=== PATIENT | male | born 1945 | race Caucasian/White ===

== ENCOUNTER → 2021-08-29 07:44 | Outpatient (CLI) | payer MEDICARE, BC, SELFPAY ==
--- NOTE | 2021-08-29 | CA_ITS ---
FINAL REPORT TECHNIQUE: Grayscale, color Doppler and duplex Doppler ultrasound of the kidneys, aorta and renal arteries was performed. Multiple velocities were measured. CLINICAL HISTORY: .CKD III, HTN, Pt was not NPO FINDINGS: Aorta velocity: 131.1 cm/sec Right kidney: 10.8 cm. No evidence of hydronephrosis or mass. Right intrarenal RI: 0.75 Right renal artery velocity: 189 cm/sec. Right RAR (Renal artery-Aortic Ratio): 1.4 Left Kidney: 12.2 cm. No evidence of hydronephrosis or mass. Left intrarenal RI: 0.75 Left renal artery velocity: 157 cm/sec. Left RAR (Renal Artery-Aortic Ratio): 1.2 IMPRESSION: No evidence of significant renal artery stenosis. CT angiogram or postcontrast MR angiogram would be more sensitive for evaluation of possible renal artery stenosis. Reviewed, Interpreted and Dictated by Ibrahima Zapata III, MD Transcribed by Divina Belcher Authenticated by Ibrahima Zapata III, MD on 08/29/2021 11:21:41 AM [facility]
== END ==
PROVIDERS: PCP Family Medicine; Visit Provider Family Medicine
DX: I10 Essential (primary) hypertension (principal)
CPT/HCPCS: 93976

== ENCOUNTER → 2021-10-10 08:28 | Outpatient (CLI) | payer MEDICARE, BC, SELFPAY | PROVIDERS: Visit Provider Surgery | DX: Z01.812 Encounter for preprocedural laboratory examination (principal); Z11.52 Encounter for screening for COVID-19; Z12.11 Encounter for screening for malignant neoplasm of colon | CPT/HCPCS: C9803; U0003; U0005 ==

== ENCOUNTER 2021-10-12 07:28 | Day surgery (SDC) | payer MEDICARE, BC, SELFPAY ==
[2021-10-11 14:22] VITALS: BMI 34.7
[2021-10-12] VITALS (7 sets, daily range): BP systolic 102–166; BP diastolic 57–79; PULSE 54–102; RESP 16; TEMP 36.3–36.6; O2SAT 92–97
--- NOTE | 2021-10-12 07:49 | P.PN_ITS ---
[facility] Anesthesia Checklist - Structural Data Admitted From: Home Planned Operative Procedure/s: Colonoscopy Verified Documents: Surgical Consent - NPO Status Verified Time NPO: 04:00 - Airway Assessment C-Spine Mobility Assessed: Yes TMJ Mobility Assessed: Yes - Neurological Assessment Level of Consciousness: Awake, Alert, Appropriate - Anesthesia Plan Anesthesia Risk discussed: Yes ASA Class: II Anesthesia Type: MAC [facility] History I have reviewed the patient's past medical history: Yes Medical History: Reports:: Diabetes Mellitus Type 2, MRSA Denies:: Cancer, Diabetes Mellitus Type 1, Internal Pacemaker *Have you ever received a pneumonia vaccine?: Yes *Have you received a flu vaccine this season?: Yes Anesthesia experience/problems:: none Other Surgeries: No: Pacemaker Amputation: No Fractures: No - *Social History Last grade of school completed: High school graduate Smoking Status: Former smoker Alcohol Intake: current Alcohol Intake Frequency:: a few times a month Substance Use Type: denies use *Occupational Status:: retired Housing: house Household Members: spouse *Travel in the last 8 weeks: None Family Hx:: Other
--- NOTE | 2021-10-12 09:01 | HMH.SCOPE ---
- Procedure: Date: 10/12/21 Patient Date of :: 1945 Procedure Performed:: Colonoscopy with polypectomy by snare and biopsy Indications:: Patient is a 76-year-old male from [place] with history of diabetes, hypertension, previous stroke. He underwent colonoscopy in [address] Umaña and was found to have 8 tubular adenomas. He had follow-up colonoscopy 03/07/2017 and had several polyps removed. Performing Provider:: Ibrahima Saldaña MD Referring Provider:: Yolis Rosa Sedation:: MAC sedation Procedure:: Patient was taken to endoscopy procedure room. He was positioned in lateral decubitus position. Adequate intravenous sedation was achieved with anesthesia titration propofol. Variable stiffness Olympus colonoscope was inserted via the anus. Advanced to the cecum with some minor difficulty due to floppiness and redundancy of the sigmoid colon. Ileocecal valve was clearly identified. There was a small adenomatous appearing polyp in the cecum removed with cold biopsy. Colonoscope was slowly withdrawn through the colon. There was particulate liquid stool throughout the colon which was suctioned free. The descending colon there was a several millimeter adenomatous appearing polyp removed with cold snare. He had left-sided diverticulosis. There was a single diverticulum which appeared to have some inflammatory changes with punctate erosion. This was biopsied. The rectosigmoid region there were multiple hyperplastic appearing polyps which were sampled using cold biopsy. Retroflexion within the rectum revealed nonbleeding internal hemorrhoids. Colonoscope was withdrawn. Findings:: Particulate liquid stool within the colon Small cecal polyp Several millimeter descending colon polyp Left-sided diverticulosis with single diverticulum showing some inflammation Hyperplastic appearing rectosigmoid polyps Recommendations:: Follow-up colonoscopy pending the pathology. Likely 3 to 5 years Complications:: None immediately apparent Estimated blood obtained (mL): 2
[2021-10-12 09:12] LABS: POC Glucose,Bedside 91 (70-110)
== END 2021-10-12 09:45 | disposition home or self-care (01) ==
LOC: OUTP 07:30
PROVIDERS: PCP Nurse Practitioner Family; Visit Provider Surgery
PROC: 0DJD8ZZ Inspection of Lower Intestinal Tract, Via Natural or Artificial Opening Endoscopic (ICD-10-PCS; principal; 2021-10-12 08:30)
DX: Z12.11 Encounter for screening for malignant neoplasm of colon (principal); Z86.010 Personal history of colon polyps; K63.5 Polyp of colon; K57.30 Diverticulosis of large intestine without perforation or abscess without bleeding; E11.9 Type 2 diabetes mellitus without complications; Z86.14 Personal history of Methicillin resistant Staphylococcus aureus infection; Z87.891 Personal history of nicotine dependence; E78.5 Hyperlipidemia, unspecified; I10 Essential (primary) hypertension; Z79.82 Long term (current) use of aspirin; Z79.84 Long term (current) use of oral hypoglycemic drugs; Z79.899 Other long term (current) drug therapy
CPT/HCPCS: 45380; 45385; 82962; 88305

== ENCOUNTER → 2022-11-28 13:48 | Outpatient (CLI) | payer MEDICARE, BC, SELFPAY ==
--- NOTE | 2022-11-28 13:54 | XR_ITS ---
FINAL REPORT CLINICAL HISTORY: RT KNEE PAIN COMPARISON: None FINDINGS: Three views of the right knee reveal no evidence of fracture or dislocation. The bony alignment is normal. There is mild degenerative change. There is no evidence of joint effusion. Mild vascular calcifications are noted. IMPRESSION: No acute abnormality identified. Reviewed, Interpreted and Dictated by Ibrahima Zapata III, MD Transcribed by Parul Berry Authenticated and . [facility]
== END ==
PROVIDERS: PCP Nurse Practitioner Family; Visit Provider Nurse Practitioner Family
DX: M25.561 Pain in right knee (principal)
CPT/HCPCS: 73562

== ENCOUNTER → 2023-06-05 08:21 | Outpatient (CLI) | payer MEDICARE, BC, SELFPAY ==
[2023-06-05 17:34] LABS: Basophils # 0.1 K/mm3 (0-0.2); Eosinophils # 0.4 K/mm3 (0.0-0.4); Hematocrit 42.8 % (42.0-52.0); Hemoglobin 14.2 g/dL (14.1-18.0); Lymphocytes # 1.8 K/mm3 (0.7-4.5); Lymphocytes % 27.2 % (10-50); Mean Corpuscular HGB Conc 33.2 g/dL (31.8-35.4); Mean Corpuscular Hemoglobin 31.4 pg (27.0-31.2); Mean Corpuscular Volume 94.4 fl (80-94); Mean Platelet Volume 10.2 fl (7.4-10.4); Monocytes # 0.5 K/mm3 (0.1-1.0); Neutrophils # 3.8 K/mm3 (1.8-7.8); Neutrophils % 57.8 % (37.0-80.0); Platelet Count 282 K/mm3 (142-424); Red Blood Count 4.53 M/mm3 (4.60-6.20); Red Cell Distribution Width 13.8 % (11.5-17.5); White Blood Count 6.5 K/mm3 (4.8-10.8)
[2023-06-05 17:50] LABS: Alanine Aminotransferase 41 U/L (12-78); Albumin Level 4.5 g/dl (3.5-5.0); Albumin/Globulin Ratio 1.3 (1.1-1.8); Alkaline Phosphatase 43 U/L (38-126); Aspartate Amino Transferase 47 U/L (17-59); Bilirubin,Total 0.4 mg/dl (0.2-1.3); Blood Urea Nitrogen 39 mg/dl (9-20); Carbon Dioxide 24 mmol/L (22.0-30.0); Chloride 102 mmol/L (98-107); Cholesterol 185 mg/dl (140-200); Estimated Glomerular Filt Rate 35 ml/min (>60); GFR (African American) 42 ML/MIN (>60); Globulin 3.5 g/dL (1.3-3.2); Glucose 120 mg/dl (74-100); Triglycerides 295 mg/dl (30-150); VLDL Cholesterol 59 mg/dL (0-40)
[2023-06-05 17:51] LABS: Anion Gap 12.6 mEq/L (5-15); HDL Cholesterol 37 mg/dl (40-60); Potassium 5.6 mmoL/L (3.5-5.1); Sodium 133 mmol/L (136-145)
[2023-06-05 18:01] LABS: Direct LDL Cholesterol 96.44 mg/dL (100-129)
[2023-06-05 18:09] LABS: Hemoglobin A1C 7.5 % (4.0-6.0)
[2023-06-05 18:20] LABS: Thyroid Stimulating Hormone 2.67 uIU/mL (0.465-4.68)
== END ==
PROVIDERS: PCP Family Medicine; Visit Provider Family Medicine
DX: Z00.00 Encounter for general adult medical examination without abnormal findings (principal); E11.9 Type 2 diabetes mellitus without complications; I10 Essential (primary) hypertension; R53.83 Other fatigue; Z79.4 Long term (current) use of insulin; Z79.84 Long term (current) use of oral hypoglycemic drugs; Z87.891 Personal history of nicotine dependence
CPT/HCPCS: 80053; 80061; 83036; 84443; 85025

== ENCOUNTER 2023-10-09 09:03 | Outpatient (CLI) | payer MEDICARE, BC, SELFPAY | END 2023-10-09 23:59 | disposition home or self-care (01) | LOC: LAB.DROPOF 10-08 11:18 | PROVIDERS: PCP Family Medicine; Visit Provider Family Medicine | DX: I10 Essential (primary) hypertension (principal); E11.9 Type 2 diabetes mellitus without complications | CPT/HCPCS: 80053; 80061; 83036; 84443; 85025 ==

== ENCOUNTER 2024-03-15 11:43 | Outpatient (CLI) | payer MEDICARE, BC, SELFPAY ==
[2024-03-15 12:22] LABS: Basophils # 0.1 K/mm3 (0-0.2); Basophils % 0.7 % (0.1-2.0); Eosinophils # 0.3 K/mm3 (0.0-0.4); Eosinophils % 4.3 % (0.1-12.0); Hematocrit 45.7 % (42.0-52.0); Hemoglobin 14.5 g/dL (14.1-18.0); Lymphocytes # 1.8 K/mm3 (0.7-4.5); Lymphocytes % 26.7 % (10-50); Mean Corpuscular HGB Conc 31.7 g/dL (31.8-35.4); Mean Corpuscular Hemoglobin 30.9 pg (27.0-31.2); Mean Corpuscular Volume 97.6 fl (80-94); Mean Platelet Volume 8.1 fl (7.4-10.4); Monocytes # 0.5 K/mm3 (0.1-1.0); Monocytes % 6.7 % (1.7-9.3); Neutrophils # 4.3 K/mm3 (1.8-7.8); Neutrophils % 61.7 % (37.0-80.0); Platelet Count 289 K/mm3 (142-424); Red Blood Count 4.69 M/mm3 (4.60-6.20); Red Cell Distribution Width 14.9 % (11.5-17.5); White Blood Count 6.9 K/mm3 (4.8-10.8)
[2024-03-15 12:51] LABS: Alanine Aminotransferase 36 U/L (12-78); Albumin Level 4.5 g/dl (3.5-5.0); Alkaline Phosphatase 39 U/L (38-126); Anion Gap 9.4 mEq/L (5-15); Aspartate Amino Transferase 42 U/L (17-59); Bilirubin,Direct 0.2 mg/dl (0.0-0.4); Bilirubin,Indirect 0.3 mg/dL (0.0-0.9); Bilirubin,Total 0.5 mg/dl (0.2-1.3); Bilirubin,Unconjugated 0.3 mg/dL (0.0-1.1); Blood Urea Nitrogen 29 mg/dl (9-20); Calcium 10.5 mg/dl (8.4-10.2); Carbon Dioxide 27 mmol/L (22.0-30.0); Chloride 104 mmol/L (98-107); Chol/HDL Ratio 3.1 (1-3.5); Cholesterol 188 mg/dl (140-200); Estimated Glomerular Filt Rate 53 ml/min (>60); GFR (African American) 65 ML/MIN (>60); Glucose 80 mg/dl (74-100); HDL Cholesterol 60 mg/dl (40-60); Potassium 4.4 mmoL/L (3.5-5.1); Sodium 136 mmol/L (136-145); Total Protein,Serum 8.1 g/dl (6.3-8.2); Triglycerides 138 mg/dl (30-150); VLDL Cholesterol 28 mg/dL (0-40)
[2024-03-15 13:07] LABS: Free T4 (Free Thyroxine) 1.09 ng/dl (0.78-2.19)
[2024-03-15 13:21] LABS: Thyroid Stimulating Hormone 2.42 uIU/mL (0.465-4.68)
== END 2024-03-15 23:59 | disposition home or self-care (01) ==
LOC: LAB 11:44
PROVIDERS: PCP Family Medicine; Visit Provider Nurse Practitioner
DX: R07.89 Other chest pain (principal); R06.00 Dyspnea, unspecified; I10 Essential (primary) hypertension; R94.31 Abnormal electrocardiogram [ECG] [EKG]; E11.40 Type 2 diabetes mellitus with diabetic neuropathy, unspecified; Z79.4 Long term (current) use of insulin; Z87.891 Personal history of nicotine dependence; R60.9 Edema, unspecified
CPT/HCPCS: 36415; 80048; 80061; 80076; 84439; 84443; 85025

== ENCOUNTER 2024-03-25 07:12 | Outpatient (CLI) | payer MEDICARE, BC, SELFPAY ==
--- NOTE | 2024-03-25 | CA_ITS ---
APPROVED REPORT Exam: Pharmacologic Technologist: Shae Jones, Ht: 6 ft 0 in Wt: 259 lbs BSA: 2.38 m2 HR: 60 bpm BP: 154/64 mmHg Rhythm: NSR, PACs, PVCs, incomplete RBBB, inferior and lateral T wave abns Medical History Medical History: HTN, Hyperlipidemia, Diabetes, Smoking Medications: Lisinopril,,,,, Levothyroxine,,,,, Aspirin,,,,, Metoprolol Tartrate,,,,, Vit D3,,,,, CloPIdogrel,,,,, RoSUVASTATIN,,,,, Multivitamin,,,,, Furosemide,,,,, INSULIN GLARGINE,,,,, Clonidine HCI,,,,, NifEDIPINE ER,,,,, Allergies: No known drug allergies Cardiac Risk Factors: HTN, Hyperlipidemia, Diabetes, FHX of CAD, Smoking Stress Test Details Test: LEXISCAN HR Resting HR: 62 bpm Max Heart Rate (APMHR): 142 bpm Max HR Achieved: 75 bpm Target HR (85% APMHR): 121 bpm % of APMHR: 53 Recovery HR: 60 bpm BP Resting BP: 154/64 mmHg Max BP: 167/71 mmHg Recovery BP: 160.0/63.0 mmHg ECG Resting ECG: NSR, PACs, PVCs, incomplete RBBB, inferior and lateral T wave abns Stress ECG: No significant ST changes Arrhythmia: PACs, PVCs, junctional beats. Clinical Exercise duration: 04:00 min Highest Stage Achieved: Stress ECG Conclusion Pt had no symptoms. PACs, PVCs, junctional beats after Lexiscan administration Conclusion: No significant ST changes Unremarkable lexiscan stress Test Summary REST 04:11 . . 62 . 154/ 64 . . Stage 1 01:00 . . 66 . . . . Stage 2 01:00 . . 69 . . . . Stage 3 01:00 . . 72 . 167/ 71 . . Stage 4 01:00 . . 66 . 161/ 71 . Stop exercise at 04:00 RECOVERY 01:00 . . 63 . 162/ 63 . . RECOVERY 02:00 . . 67 . 162/ 63 . . RECOVERY 02:30 . . 64 . 160/ 63 . . Electronically signed by : Alla Buckley MD 03/29/2024 22:41:12
--- NOTE | 2024-03-25 07:15 | CA_ITS ---
APPROVED REPORT EXAM: Comprehensive 2D, Doppler, and color-flow Echocardiogram Contracting Engineer: Brittni Madrid CRT Ht: 6 ft 0 in Wt: 258lbs BSA: 2.37 BP: 142/68 mmHg Indications: Chest Pain, Shortness of Breath, Diabetes, Hyperlipidemia, Hypertension/HDD, stent, exsmoker 2D Dimensions LA Volume 73.10 mL LA Volume Index 30.10 mL/m2 (M/F) 16-34 M-Mode Dimensions RVDd 3.51 cm (0.9-2.6) LA Diam 5.25 cm (1.9-4.0) LVDd 5.08 cm (3.5-5.7) LVDs 2.86 cm (3.5-5.7) IVSd 1.61 cm (0.6-1.1) PWd 0.93 cm (0.6-1.1) EF (Teich) 74.70% FS 43.70% EDV (Teich) 122.70 mL TAPSE 2.60 (<1.7) ESV (Teich) 31.10 mL LV Diastology E Decel Time 223 (160-240 msec) E/A Ratio 0.84 MED A' 10.80 cm/s LAT A' 9.30 cm/s Aortic Valve AO Peak GR. 9.30 mmHg Mitral Valve MV A Velocity 78.0 (40-130 cm/s) E/A Ratio 0.84 Pulmonary Valve PV Peak Velocity 146.0 (50-150 cm/s) Tricuspid Valve TR P. Velocity 272.00 cm/s RAP Estimate 10.00 mmHg RVSP 39.50 mmHg Left Ventricle The left ventricle is normal size. The left ventricular systolic function is normal. The left ventricular ejection fraction is within the normal range. There is marked increase of wall thickness. IVSD 1.3 cm. There is normal LV segmental wall motion. Diastolic function is indeterminate. Transmitral Doppler flow pattern suggests impaired LV relaxation. LVEF is 65%. Right Ventricle The right ventricle is mildly dilated. The right ventricular systolic function is normal. Atria Left atrium is mildly dilated. Right atrium is mildly dilated. There is no Doppler evidence of interatrial shunt. Aortic Valve The aortic valve is mildly thickened. Trace aortic regurgitation. There is no aortic valvular stenosis. Mitral Valve The mitral valve is mildly thickened. No evidence of mitral valve stenosis. Trace mitral regurgitation. Tricuspid Valve The tricuspid valve leaflets are thin and pliable. Mild tricuspid regurgitation. RVSP is 20-25 mmHg. Pulmonic Valve The pulmonary valve is normal in structure. Mild pulmonic regurgitation. Great Vessels The aortic root is normal in size. The ascending aorta is not well-visualized. IVC is normal in size and collapses >50% with inspiration. The Pericardium There is no pericardial effusion. Other Information Study Quality: Fair Conclusion Normal LV systolic function. Marked increased LV wall thickness. IVSD 1.3 cm. Mildly dilated RV with mild reduction in RV function. Biatrial dilation. Mild TR, mild PI. In the setting of persistent symptoms, increased LV wall thickness, and biatrial dilation, further evaluation for infiltrative cardiomyopathy (namely amyloidosis) is suggested with cardiac MRI (amyloidosis protocol), PYP nuclear scan, and amyloidosis lab testing. Electronically signed by : Alla Buckley MD 03/29/2024 23:36:47
--- NOTE | 2024-03-25 07:17 | NM_ITS ---
APPROVED REPORT Exam: Nuclear Stress Test Indication: soa..fatigue Patient Location: Outpatient Stress Tech: Shae Jones [place] Tech:Dominga OrozcoLEIDY RT(R)(N) Ht: 6 ft 0 in Wt: 255 lbs HR: 62 bpm BP: 154/64 mmHg BSA: 2.36 m2 TID: 1.06 History: soa..fatigue Procedure: Patient received 0.4 mg of intravenous Lexiscan, resting heart rate 62 bpm, resting blood pressure 154/64 mmHg, with Lexiscan maximum heart rate achieved was 75 bpm which is 85 % of the maximum predicted heart rate and blood pressure was 167/71 mmHg. With Lexiscan, patient denied any complaint of chest pain. Cardiac Stress and Resting SPECT Images: Cardiac Stress and Resting SPECT images were obtained using technetium 99m Myoview 32.2 mCi stress and 10.71 mCi at rest. Resting and stress imaging in supine and prone positions demonstrate no evidence of fixed or reversible perfusion defects. Gated imaging demonstrates normal global and regional LV systolic function. LVEF is calculated at 62%. Conclusion: No evidence of fixed or reversible perfusion defects. Gated imaging demonstrates normal global and regional LV systolic function. LVEF is calculated at 62%. Electronically signed by : Alla Buckley MD 03/29/2024 22:42:07
[2024-03-25] MEDS: ISOTOPE MYOVIEW (PER STUDY) 1 DOSE IV (11:15)
[2024-03-25] MEDS: SODIUM CHLORIDE 0.9% 10ML SYR (RAD ONLY) 10 ML IV ×2 (11:15)
[2024-03-25] MEDS: REGADENOSON 0.4MG/5ML SYRINGE 0.4 MG IV (11:15)
== END 2024-03-25 23:59 | disposition home or self-care (01) ==
LOC: RAD 07:13
PROVIDERS: PCP Family Medicine; Visit Provider Nurse Practitioner
DX: R07.89 Other chest pain (principal); R06.00 Dyspnea, unspecified; I10 Essential (primary) hypertension
CPT/HCPCS: 78452; 93017; 93018; 93306; A9502; J2785

== ENCOUNTER 2024-05-07 07:22 | Outpatient (CLI) | payer MEDICARE, BC, SELFPAY ==
--- NOTE | 2024-05-07 07:50 | NM_ITS ---
APPROVED REPORT [employer]: Procedure: 99mTc-PYP Cardiac Amyloidosis Imaging Clinical Indication: Heart failure, increased LV wall thickness Protocol: The patient received 25.2 mCi 99mTc-PYP intravenously. Planar and SPECT imaging was performed approximately 3 hours post injection. Planar images included anterior, left lateral and NATHAN-45 projections. Findings: Visual interpretation: Planar and SPECT images were reviewed The overall quality of the study was good. Semi quantitative SPECT findings showed a grade 3. Impression: 1. Overall, the quality of the study was good. 2. Semi quantitative SPECT findings showed grade 3. 3. 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 This study and report were reviewed and signed by David Buckley MD (electric knife operator). Conclusion Electronically signed by : Alla Buckley MD 05/25/2024 00:21:36
[2024-05-07 08:07] LABS: Blood Urea Nitrogen 22 mg/dl (9-20); Estimated Glomerular Filt Rate 59 ml/min (>60); GFR (African American) 71 ML/MIN (>60)
[2024-05-07] MEDS: SODIUM CHLORIDE 0.9% 10ML SYR (RAD ONLY) 10 ML IV (09:10)
[2024-05-07] MEDS: PYROPHOSPHATE CARDIAC (PYP);1 DOSE VIAL IV (09:43)
[2024-05-10 14:11] LABS: Free Kappa Lt Chains 61.8 mg/L (3.3-19.4); Free Lambda Lt Chains 28.1 mg/L (5.7-26.3)
[2024-05-10 16:21] LABS: Albumin 3.6 g/dL (2.9-4.4); Alpha-1-Globulin 0.3 g/dL (0.0-0.4); Alpha-2-Globulin 0.9 g/dL (0.4-1.0); Gamma Globulin 1.7 g/dL (0.4-1.8); Protein, Total 7.7 g/dL (6.0-8.5)
[2024-05-11 15:11] LABS: Albumin, U 63.4 % (.); Alpha-1-Globulin, U 0.8 % (.); Beta Globulin, U 17.3 % (.); Gamma Globulin, U 12.5 % (.); Immunoglobulin A, Qn 440 mg/dL (61-437); Immunoglobulin G, Qn 1664 mg/dL (603-1613); Immunoglobulin M, Qn 53 mg/dL (15-143); M-Spike, % Not Observed % (Not Observed); Protein,Total,Urine 8.5 mg/dL (Not Estab.)
[2024-05-12 10:18] LABS: PDF SCANNED IMAGE
[2024-05-12 10:35] LABS: PDF: SCANNED IMAGE
== END 2024-05-07 23:59 | disposition home or self-care (01) ==
LOC: RAD 07:24
PROVIDERS: PCP Family Medicine; Visit Provider Nurse Practitioner
DX: I51.7 Cardiomegaly (principal); R07.89 Other chest pain
CPT/HCPCS: 36415; 78800; 82565; 82784; 83883; 84155; 84156; 84165; 84166; 84520; 86334; 86335

== ENCOUNTER 2024-05-10 10:20 | Outpatient (CLI) | payer MEDICARE, BC, SELFPAY ==
[2024-05-10] MEDS: GADOTERIDOL INJ 10ML SYRINGE 3 ML IV (12:07)
[2024-05-10] MEDS: GADOTERIDOL INJ 20ML SYRINGE 20 ML IV (12:07)
[2024-05-10] MEDS: SODIUM CHLORIDE 0.9% 10ML SYR (RAD ONLY) 10 ML IV (12:07)
[2024-05-10] MEDS: 0.9 % SODIUM CHLORIDE 50 ML VIAL IV (12:07)
[2024-05-12 16:19] LABS: Albumin, U 53.1 % (.); Alpha-2-Globulin, U 10.9 % (.); M-Spike, % Not Observed % (Not Observed); Prot,24hr calculated 229 mg/24 hr (30-150); Protein,Total,Urine 15.8 mg/dL (Not Estab.)
[2024-05-14 09:33] LABS: PDF: SCANNED IMAGE
== END 2024-05-10 23:59 | disposition home or self-care (01) ==
LOC: RAD 10:20
PROVIDERS: PCP Family Medicine; Visit Provider Nurse Practitioner
DX: I51.7 Cardiomegaly (principal); R07.89 Other chest pain
CPT/HCPCS: 75561; 84156; 84166; A9576

== ENCOUNTER 2024-05-12 11:01 | Outpatient (CLI) | payer MEDICARE, BC, SELFPAY ==
[2024-05-12 12:13] LABS: Albumin Level 4.1 g/dl (3.5-5.0); Chloride 105 mmol/L (98-107); Potassium 4.7 mmoL/L (3.5-5.1); Sodium 140 mmol/L (136-145)
[2024-05-12 12:16] LABS: Alanine Aminotransferase 39 U/L (12-78); Alkaline Phosphatase 38 U/L (38-126); Anion Gap 13.7 mEq/L (5-15); Aspartate Amino Transferase 38 U/L (17-59); Bilirubin,Direct 0.1 mg/dl (0.0-0.4); Bilirubin,Indirect 0.3 mg/dL (0.0-0.9); Bilirubin,Total 0.4 mg/dl (0.2-1.3); Bilirubin,Unconjugated 0.3 mg/dL (0.0-1.1); Calcium 10.2 mg/dl (8.4-10.2); Carbon Dioxide 26 mmol/L (22.0-30.0); Glucose 132 mg/dl (74-100); Total Protein,Serum 7.2 g/dl (6.3-8.2)
[2024-05-12 12:21] LABS: Blood Urea Nitrogen 20 mg/dl (9-20); Estimated Glomerular Filt Rate 59 ml/min (>60); GFR (African American) 71 ML/MIN (>60)
[2024-05-12 12:22] LABS: NT Pro Brain Natriuretic Pep. 167 pg/mL (0-450)
[2024-05-12 12:28] LABS: Troponin I < 0.01 ng/ml (0.00-0.034)
== END 2024-05-12 23:59 | disposition home or self-care (01) ==
LOC: LAB 11:02
PROVIDERS: PCP Family Medicine; Visit Provider Internal Medicine
DX: E85.9 Amyloidosis, unspecified (principal); I51.7 Cardiomegaly; R60.9 Edema, unspecified; R07.89 Other chest pain; R94.31 Abnormal electrocardiogram [ECG] [EKG]; R06.00 Dyspnea, unspecified; I10 Essential (primary) hypertension; E11.40 Type 2 diabetes mellitus with diabetic neuropathy, unspecified; Z79.4 Long term (current) use of insulin
CPT/HCPCS: 36415; 80048; 80076; 83880; 84484

== ENCOUNTER 2024-06-14 09:07 | Outpatient (CLI) | payer MEDICARE, BC, SELFPAY ==
[2024-06-14 17:32] LABS: Creatinine,Urine Random 109 mg/dL (Not Estab.)
[2024-06-14 17:45] LABS: Microalbumin/Creatinine Ratio 18.3
== END 2024-06-14 23:59 | disposition home or self-care (01) ==
LOC: LAB.DROPOF 06-15 09:07
PROVIDERS: PCP Family Medicine; Visit Provider Family Medicine
DX: E11.9 Type 2 diabetes mellitus without complications (principal)
CPT/HCPCS: 82043; 82570

== ENCOUNTER 2024-10-07 12:39 | Outpatient (CLI) | payer MEDICARE, BC, SELFPAY ==
[2024-10-07 18:35] LABS: Basophils # 0.1 K/mm3 (0-0.2); Basophils % 1.1 % (0.1-2.0); Eosinophils # 0.4 Kmm3 (0.0-0.4); Eosinophils % 5.7 % (0.1-12.0); Hematocrit 41.5 % (42.0-52.0); Hemoglobin 13.3 g/dL (14.1-18.0); Lymphocytes # 1.8 K/mm3 (0.7-4.5); Lymphocytes % 28.5 % (10-50); Mean Corpuscular Hemoglobin 29.3 pg (27.0-31.2); Mean Corpuscular Volume 91.4 fl (80-94); Mean Platelet Volume 11.5 fl (7.4-10.4); Monocytes # 0.7 K/mm3 (0.1-1.0); Monocytes % 11.4 % (1.7-9.3); Neutrophils # 3.3 K/mm3 (1.8-7.8); Neutrophils % 52.8 % (37.0-80.0); Nucleated Red Blood Cells # 0 10^3/uL; Nucleated Red Blood Cells % 0 %; Platelet Count 275 K/mm3 (142-424); Red Blood Count 4.54 M/mm3 (4.60-6.20); Red Cell Distribution Width 14.8 % (11.5-17.5); Red Cell Distribution Width-SD 49.4 fL; White Blood Count 6.3 K/mm3 (4.8-10.8)
[2024-10-07 19:05] LABS: Albumin Level 4.4 g/dl (3.5-5.0); Chloride 105 mmol/L (98-107); Sodium 139 mmol/L (136-145)
[2024-10-07 19:06] LABS: Potassium 5.1 mmoL/L (3.5-5.1)
[2024-10-07 19:08] LABS: Alanine Aminotransferase 29 U/L (12-78); Albumin/Globulin Ratio 1.2 (1.1-1.8); Alkaline Phosphatase 42 U/L (38-126); Anion Gap 14.1 mEq/L (5-15); Aspartate Amino Transferase 37 U/L (17-59); Bilirubin,Total 0.5 mg/dl (0.2-1.3); Blood Urea Nitrogen 23 mg/dl (9-20); Carbon Dioxide 25 mmol/L (22.0-30.0); Cholesterol 139 mg/dl (140-200); Estimated Glomerular Filt Rate 49 ml/min (>60); GFR (African American) 59 ML/MIN (>60); Globulin 3.6 g/dL (1.3-3.2); Triglycerides 90 mg/dl (30-150); VLDL Cholesterol 18 mg/dL (0-40)
[2024-10-07 19:09] LABS: Calcium 10.3 mg/dl (8.4-10.2); Glucose 101 mg/dl (74-100); HDL Cholesterol 46 mg/dl (40-60)
[2024-10-07 19:19] LABS: Direct LDL Cholesterol 66.39 mg/dL (100-129)
[2024-10-07 19:36] LABS: Thyroid Stimulating Hormone 2.78 uIU/mL (0.465-4.68)
[2024-10-07 20:57] LABS: Hemoglobin A1C 9.1 % (4.0-6.0)
== END 2024-10-07 23:59 | disposition home or self-care (01) ==
LOC: LAB 11-08 12:40
PROVIDERS: PCP Family Medicine; Visit Provider Family Medicine
DX: I10 Essential (primary) hypertension (principal); E11.9 Type 2 diabetes mellitus without complications
CPT/HCPCS: 80053; 80061; 83036; 84443; 85025